=== PATIENT | male | born 1945 | race Caucasian/White ===

== ENCOUNTER 2018-11-02 09:24 | Day surgery (SDC) | payer MEDICARE ==
[~2018-11-02 09:24] MED LIST: ACETAMINOPHEN 1,000 MG/100 ML BTL IV ONE; CLINDAMYCIN 600MG/50ML PREMIX 600 MG/50 ML BAG IVPB ONE
[2018-11-02] MEDS ORDERED: BUPIVACAINE 0.5% W/EPI MPF 30 ML VIAL IVP ONE (09:25)
[2018-11-02] MEDS ORDERED: MIDAZOLAM HCL 2MG/2ML VIAL IV ONE (09:25)
[2018-11-02] MEDS ORDERED: EPINEPHRINE 1 MG/ML AMPUL SQ ONE (09:25)
[2018-11-02] MEDS ORDERED: SUFENTANIL CITRATE 50 MCG/ML AMPUL IV ONE (09:25)
[2018-11-02] MEDS ORDERED: PROPOFOL 10 MG/ML VIAL IV ONE (09:25)
[2018-11-02] MEDS ORDERED: KETOROLAC 30 MG/ML VIAL IVP ONE (09:25)
[2018-11-02] MEDS ORDERED: LIDOCAINE 2% MDV (20MG/ML) 20ML VIAL IV ONE (09:25)
[2018-11-02] MEDS ORDERED: ROPIVACAINE HCL (NAROPIN) /PF 5MG/ML 20ML VIAL IV ONE (09:25)
[2018-11-02] MEDS ORDERED: DESFLURANE 240 ML BTL INH ONE (09:25)
[2018-11-02] MEDS ORDERED: FENTANYL PF 100MCG/2ML VIAL IV ONE (09:25)
[2018-11-02] MEDS ORDERED: BUPIVACAINE LIPOSOME 266MG/20ML VIAL IV ONE (09:25)
[2018-11-02 09:38] LABS: BASO % 0.9 % (0-6); EOS % 2.5 % (0-6); GRAN % 69.8 % (47-80); HEMATOCRIT 48.7 % (42.0-52.0); HEMOGLOBIN 16.2 gm/dl (14.0-18.0); LYMPH % 18.9 % (16-45); MEAN CELL VOLUME 91.4 fl (81-97); MEAN CORPUSCULAR HEMOGLOBIN 30.4 pg (27-33); MEAN CORPUSCULAR HGB CONC 33.3 g/dl (32-36); MEAN PLATELET VOLUME 10.6 fl (7.4-10.4); MONO % 7.9 % (0-9); PLATELET COUNT 226 K/uL (130-400); RED BLOOD COUNT 5.33 M/uL (4.40-5.70); RED CELL DISTRIBUTION WIDTH 13.3 % (11.5-14.5); WHITE BLOOD COUNT W/O DIFF 5.7 K/uL (4.2-12.2)
[2018-11-02 09:50] LABS: BLOOD UREA NITROGEN 15 mg/dL (8-23); EST GLOMERULAR FILTRATION RATE > 60 mL/min; GLUCOSE,RANDOM 116 mg/dL (74-109)
--- NOTE | 2018-11-06 08:38 | Operative Note ---
DATE OF SURGERY: 11/02/2018. PREOPERATIVE DIAGNOSES: 1. RIGHT SHOULDER ROTATOR CUFF TEAR. 2. ACROMIOCLAVICULAR JOINT ARTHROSIS. POSTOPERATIVE DIAGNOSES: 1. RIGHT SHOULDER ROTATOR CUFF TEAR. 2. ACROMIOCLAVICULAR JOINT ARTHROSIS. 3. BICEPS TENDON PARTIAL TEAR. OPERATION: 1. Diagnostic arthroscopy. 2. Arthroscopic acromioplasty with subacromial decompression. 3. Arthroscopic excision of the clavicle and acromioclavicular 1.0 cm. 4. Arthroscopic rotator cuff repair. 5. Arthroscopic biceps tenodesis. SURGEON: Tyson Blake M.D. ANESTHESIA: General endotracheal, Kiki Engel CRNA. COMPLICATIONS: None. ESTIMATED BLOOD LOSS: Minimal. OPERATIVE FINDINGS: A medium to large tear predominantly of the articular surface tapering off to bursal surface of the supraspinatus and infraspinatus tendons. COMPONENTS PLACED: Two [employer] 5.5 Regenesorb anchors, each with two #2 Ultrabraid sutures and one MultiFix anchor loaded with eight limbs from the medial row. INDICATIONS: This is an 72-year-old male who has had persistent pain and dysfunction in his right shoulder. He was diagnosed with a rotator cuff tear by ultrasound examination, and he was scheduled for the procedures above. I explained to him all risks and benefits of surgery in detail for the diagnosis and procedures including but not limited to infection, nerve injury, vessel injury, persistent pain, stiffness, numbness and tingling in his shoulder, retear of the rotator cuff, and the need for further procedures. All of his questions were answered. The treatment and course were outlined and he agreed to proceed. PROCEDURE: The patient was brought to the operating room, placed in the beach chair position, and prepared for surgery. General endotracheal anesthesia was induced. His right upper extremity and shoulder were prepped and draped in sterile fashion. The right shoulder was prepped again with ChloraPrep and draped. Intraoperative time out was performed. Preoperative examination revealed shoulder range of motion and no shoulder instability. Next the glenohumeral joint, subacromial space, and acromioclavicular joint were injected with 0.5% Marcaine with epinephrine. A standard posterior arthroscopic portal was established 2.0 cm inferior and 1.0 cm posterolateral to the acromion. An anterior portal was established through the rotator under direct visualization, and diagnostic arthroscopy was performed. The biceps tendon was partially torn. Biceps anchor and superior labrum were slightly frayed and were otherwise normal. The posterosuperior labrum was normal. Axial recess was normal. Posteroinferior labrum was normal. The glenohumeral head and articular cartilage were normal. The undersurface of the rotator cuff was thoroughly inspected. There was a significant full-thickness tear in the supraspinatus tendon. This extended posteriorly as well and involved about 70 percent of the width of the tendon insertion posteriorly and full thickness anteriorly. The barrier was normal. The superior and middle glenohumeral was intact. The subscapularis tendon showed some mild tensile failure superiorly and was otherwise normal. The anterior free limb of the glenoid looks normal. Next, I inserted the shaver in the anterior port. I debrided back the labrum slightly anteriorly to a smooth, stable surface. I debrided the greater tuberosity to the articular margin in preparation for rotator cuff repair. Next, the anterior and posterior subacromial portals were established. The tissue ablator was inserted in the subacromial portal, and subacromial resection was performed. I outlined the anterolateral edge of the acromion and coracoacromial ligament and opened up the inferior acromioclavicular joint capsule. Next, the lateral portal was established off the posterior margin of the acromioclavicular joint. A 5.5 mm west was inserted and I took off strips of bone, working from lateral to medial, anterior and posterior. I converted the type II acromion to a planar surface using a rasp to smooth the subacromial surface and verified it was flat with the probe from the posterior portal. Next, the bur was inserted in the anterior portal and I burred down to the medial acromial facet. Resected the distal clavicle 1.0 cm and made small stab incision superior to the acromioclavicular joint. I inserted the shaver there and smoothed both bony surfaces. Verified the acromioclavicular joint was completely completely free of any bony impingement and bony fragments. Next, we resected the bursa around the periphery of the bursal surface of the rotator cuff and thoroughly inspected that. Again, we saw the full-thickness tear which tapered off anterolaterally, expanding out into the articular surface tear. We debrided further the greater tuberosity. Next, we planned a double anchor medially and then single MultiFix laterally. Placed two anchors using spinal needle. Localized entry point off the acromial edge, one anterior based and one posterior based, at the articular margin. We tapped and inserted the holes in the usual fashion. Inserted the anchor in the usual fashion. We punched through the anterior cuff first, through the biceps tendon. Grasped one limb of suture and pulled it through the biceps. Released the loop of suture. Placed the penetrator back through the loop, grabbed the corresponding limb and brought it through that loop, and created a lasso effect through the biceps. The remainder of the sutures were passed in simple fashion about 2.0 cm medial to the edge through full-thickness cuff tissue from anterior to posterior, covering the tear site with the four mattress sutures. We then tied those down over the top, the first with a Revo knot and then the rest with a taut line hitch back to a three reverse hitch alternating post throws. We then loaded all of those suture limbs onto a MultiFix anchor and tensioned them slightly. Engaged the tip in the bone and tapped it down to the anchor. Then inserted the anchor and buried it in the surface of the bone. This tensioned the bursal surface nicely. The sutures were cut flush. The sutures were probed, and they were stable and secure. The footprint was nicely re- established and was directly visualized. Under direct visualization intra-articularly, rotator cut footprint was nicely re-established. We then cut and released the biceps tendon and debrided both edges from the labrum. The patient tolerated the procedures well. No intraoperative complications. Sponge, needle, and blade counts correct. Recovery room stable, neurovascularly intact. He will be discharged as an outpatient with [facility] nurse. To follow up in two weeks. JOB NUMBER: [id number] cc: Maria Del Carmen Liao
== END 2018-11-02 15:40 | disposition home or self-care (01) ==
LOC: SUR 09:24
PROVIDERS: ATTEND Orthopaedic Surgery
DX: M75.101 Unspecified rotator cuff tear or rupture of right shoulder, not specified as traumatic (principal); I10 Essential (primary) hypertension; K21.9 Gastro-esophageal reflux disease without esophagitis
CPT/HCPCS: 29827; 29826; 29824; 29828; 01630; 85025; 80048; J1885; J3010; C9290; J2795; C1713; J0171